=== PATIENT | male | born 1950 | race Caucasian/White ===

== ENCOUNTER 2016-10-07 08:52 | Emergency (ER) | payer MEDICARE, OTHER ==
[2016-10-07 09:39] VITALS: BP 132/58
[2016-10-07] MEDS ORDERED: Tetan/Diph/Pertus SYR(Tdap)* 0.5 ML SYR(BOOSTRIX) use SYR IM ONE (10:47)
[2016-10-07] MEDS ORDERED: cefTRIAXone VIAL(*) 250 MG VIAL IM ONE (10:47)
[2016-10-07] MEDS ORDERED: Lidocaine 1% MPF* 2 ML VIAL ONE (10:58)
[2016-10-07] MEDS ORDERED: Lidocaine 1% MPF* 2 ML VIAL INJ ONE (11:04)
--- NOTE | 2016-10-07 11:23 | UC ---
Bite Injury/Animal HPI - HPI Summary HPI Summary: 10/05/16 CAT BITE TO RIGHT SECOND FINGER WITH DRAINAGE REDNESS AND SWELLING DEVELPING TODAY. CAT IS IMMUNIZED. TETANUS STATUS UNKNOWN. - History of Current Complaint Chief Complaint: UCBiteInjury Stated Complaint: CAT BITE Time Seen by Provider: 10/07/16 10:32 Hx Obtained From: Patient Onset/Duration: Sudden Onset, Lasting Days, Still Present Type of Bite: Pet Has Animal Been Immunized?: Yes Character: Puncture Associated Signs And Symptoms: Positive: Fever, Erythema, Drainage, Swelling Animal Available for Observation: Yes Animal Control Notified: Yes - Risk Factors Infection/Sepsis Risk Factors: Delay in Initial Treatment - Allergies/Home Medications Allergies/Adverse Reactions: Allergies Allergy/AdvReac Type Severity Reaction Status Date / Time Fenofibrate [From Tricor] Allergy Muscle Ache Verified 10/07/16 09:32 Rosuvastatin [From Crestor] Allergy Muscle Ache Verified 10/07/16 10:19 Home Medications: Home Medications Acetaminophen TAB* [Tylenol TAB*] 2 tab PO 10/07/16 [History] Meloxicam [Vivlodex] 1 tab PO DAILY 10/07/16 [History Confirmed 10/07/16] PMH/Surg Hx/FS Hx/Imm Hx Previously Healthy: Yes - Surgical History Surgical History: None - Family History Known Family History: Negative: Blood Disorder - Social History Occupation: Retired Lives: With Family Alcohol Use: None Substance Use Type: None Smoking Status (MU): Former Smoker Review of Systems Constitutional: Fever Skin: Other - REDNESS SWELLING DRAINAGE RIGHT 2ND FINGER Eyes: Negative ENT: Negative Respiratory: Negative Cardiovascular: Negative Gastrointestinal: Negative Genitourinary: Negative Motor: Negative Neurovascular: Negative Musculoskeletal: Negative Neurological: Negative Psychological: Negative All Other Systems Reviewed And Are Negative: Yes Physical Exam Triage Information Reviewed: Yes Appearance: Well-Appearing, No Pain Distress, Well-Nourished Vital Signs: Initial Vital Signs Temp 99.0 F 10/07/16 09:35 Pulse 76 10/07/16 09:35 Resp 18 10/07/16 09:35 BP 132/58 10/07/16 09:35 Pulse Ox 95 10/07/16 09:35 Vital Signs Reviewed: Yes Eye Exam: Normal ENT Exam: Normal Dental Exam: Normal Neck exam: Normal Neck: Positive: Supple, Nontender Respiratory Exam: Normal Respiratory: Positive: Chest non-tender, Lungs clear, Normal breath sounds, No respiratory distress, No accessory muscle use Cardiovascular Exam: Normal Cardiovascular: Positive: RRR, No Murmur, Pulses Normal Abdominal Exam: Normal Neurological Exam: Normal Psychological Exam: Normal Skin: Positive: Other - ERYTHEMA EDEMA DRAINAGE RIGHT SECOND FINGER Bite Injury Course/Dx - Differential Dx/Diagnosis Provider Diagnoses: CELLILITIS, ABSCESS TO RIGHT SECOND FINGER Discharge - Discharge Plan Condition: Stable Disposition: HOME Prescriptions: Amoxicillin/Clavulanate TAB* [Augmentin TAB 875*] 875 mg PO BID #20 tab Patient Education Materials: Animal Bite (ED) Referrals: Falguni BISWAS,Sushil Sanderson [Primary Care Provider] -
== END 2016-10-07 11:38 | disposition home or self-care (01) ==
LOC: UCEAST 08:52
DX: L03.011 Cellulitis of right finger (principal); L02.511 Cutaneous abscess of right hand; W55.01XA Bitten by cat, initial encounter; Y92.9 Unspecified place or not applicable; Z87.891 Personal history of nicotine dependence; Z88.8 Allergy status to other drugs, medicaments and biological substances
CPT/HCPCS: 87070; 87205; 87640; 87641; 90471; 90715; 96372; 99212; G0463; J0696

== ENCOUNTER 2019-09-05 19:18 | Inpatient (IN) ==
[2019-09-05] MEDS ORDERED: NS 0.9% 1000 ml BAG 1,000 ML IV ONE ×2 (19:39→20:53)
[2019-09-05 20:14] LABS: ABS Basophils 0.1 10^3/ul (0-0.2); ABS Lymphocytes 1.1 10^3/ul (1.0-4.8); ABS Monocytes 0.7 10^3/ul (0-0.8); Eosinophil % 0.2 %; Hematocrit 44 % (42-52); Hemoglobin 15.2 g/dL (14.0-18.0); Mean Corpuscular HGB Conc 35 g/dL (31-36); Mean Corpuscular Hemoglobin 30 pg (27-31); Mean Corpuscular Volume 86 fL (80-94); Mean Platelet Volume 7.3 fL (7.4-10.4); Nucleated Red Blood Cells % 0.1; Platelet Count 236 10^3/uL (150-450); Red Blood Count 5.14 10^6 /uL (4.18-5.48); Red Cell Distribution Width 16 % (10-15); White Blood Count 15.4 10^3/uL (3.5-10.8)
[2019-09-05] MEDS ORDERED: Ondansetron 4 mg VIAL 2 MG/ML 2 ml VIAL IV ONE (20:22)
[2019-09-05] MEDS ORDERED: HYDROmorphone 1 MG/1 ML SYRINGE IV SLOW PU ONE (20:22)
[2019-09-05] MEDS ORDERED: Al Hydrox/Mg Hydrox/Simet LIQ 30 ML UDC PO ONE (20:24)
[2019-09-05 20:37] LABS: Albumin 4.2 g/dL (3.2-5.2); Albumin/Globulin Ratio 1.6 (1-3); BUN/Creatinine Ratio 24.7 (8-20); Calcium 9.3 mg/dL (8.6-10.3); EGFR African American 108.8 (>60); EGFR Non-African American 89.9 (>60); Globulin 2.7 g/dL (2-4); Potassium 4.7 mmol/L (3.5-5.0); Total Bilirubin 0.3 mg/dL (0.2-1.0); Total Protein 6.9 g/dL (6.4-8.9)
[2019-09-05] MEDS ORDERED: Piperacillin/Tazobac ADVAN(*) 3.375 GM in NS 0.9% 100 ml BAG 100 ML IVPB ONE (20:53)
[2019-09-05] MEDS ORDERED: Iodixanol (CONTRAST) 320 MG/ML 100 ML SDV IV ONE (21:45)
[2019-09-06] MEDS ORDERED: Ondansetron 4 mg VIAL 2 MG/ML 2 ml VIAL IV PRN (02:12)
[2019-09-06] MEDS ORDERED: NS 0.9% 1000 ml BAG 1,000 ML IV ONE ×2 (02:12→06:21)
[2019-09-06] MEDS: Pantoprazole VIAL 40 MG VIAL IV SCH (04:22)
[2019-09-06] MEDS: NS 0.9% 1000 ml BAG 1,000 ML IV SCH ×2 (04:23→15:23)
[2019-09-06 05:22] LABS: ABS Lymphocytes 0.4 10^3/ul (1.0-4.8); ABS Monocytes 0.9 10^3/ul (0-0.8); Hematocrit 41 % (42-52); Lymphocyte % 3.4 %; Mean Corpuscular HGB Conc 34 g/dL (31-36); Mean Corpuscular Hemoglobin 29 pg (27-31); Mean Corpuscular Volume 86 fL (80-94); Mean Platelet Volume 6.9 fL (7.4-10.4); Nucleated Red Blood Cells % 0.1; Platelet Count 178 10^3/uL (150-450); Red Blood Count 4.81 10^6 /uL (4.18-5.48); Red Cell Distribution Width 16 % (10-15); White Blood Count 12.8 10^3/uL (3.5-10.8)
[2019-09-06] MEDS: Heparin 5000 UNITS/ML 1 mL VIAL SUBCUT SCH ×3 (05:23→21:14)
[2019-09-06 05:35] LABS: INR 1.14 (0.82-1.09)
[2019-09-06 05:53] LABS: Calcium 8.1 mg/dL (8.6-10.3); Potassium 4.3 mmol/L (3.5-5.0)
[2019-09-06] MEDS ORDERED: Morphine 2 MG/ML SYRINGE IV PRN (05:56)
[2019-09-06 05:59] LABS: BUN/Creatinine Ratio 21.2 (8-20); EGFR African American 108.8 (>60); EGFR Non-African American 89.9 (>60); HDL Cholesterol 35.6 mg/dL
[2019-09-06 06:06] LABS: Urine Appearance Clear; Urine Bilirubin Negative (Negative); Urine Blood Negative (Negative); Urine Color Yellow; Urine Glucose Negative (Negative); Urine Ketones Negative (Negative); Urine Nitrite Negative (Negative); Urine Protein Negative (Negative); Urine Specific Gravity 1.055 (1.010-1.030); Urine Urobilinogen Negative (Negative)
[2019-09-06] MEDS ORDERED: Piperacillin/Tazobac ADVAN(*) 3.375 GM in NS 0.9% 100 ml BAG 100 ML IVPB ONE (07:08)
[2019-09-06 07:55] LABS: Albumin 3.7 g/dL (3.2-5.2); Albumin/Globulin Ratio 1.5 (1-3); Globulin 2.4 g/dL (2-4); Indirect Bilirubin 0.3 mg/dL (0.3-1.0); Total Bilirubin 0.4 mg/dL (0.2-1.0); Total Protein 6.1 g/dL (6.4-8.9)
[2019-09-06] MEDS ORDERED: Zosyn per Pharmacy NOTE FOLLOW UP SCH (08:00)
[2019-09-06] MEDS: ZOSYN 3.375 GM Q8H per EXTENDED INFUSION IV SCH ×2 (12:47→20:05)
[2019-09-06] MEDS ORDERED: Regadenoson 0.4 MG/5 ML SYRINGE ONE (13:05)
[2019-09-06 18:28] LABS: C Reactive Protein 16.22 mg/L (<8.01)
[2019-09-06 19:19] LABS: Erythrocyte Sed Rate 7 mm/Hr (0-19)
[2019-09-07] MEDS: ZOSYN 3.375 GM Q8H per EXTENDED INFUSION IV SCH ×3 (03:49→21:12)
[2019-09-07 07:11] LABS: ABS Lymphocytes 0.6 10^3/ul (1.0-4.8); ABS Monocytes 0.8 10^3/ul (0-0.8); Hematocrit 36 % (42-52); Hemoglobin 12.4 g/dL (14.0-18.0); Lymphocyte % 4.3 %; Mean Corpuscular HGB Conc 34 g/dL (31-36); Mean Corpuscular Hemoglobin 29 pg (27-31); Mean Corpuscular Volume 86 fL (80-94); Mean Platelet Volume 7.8 fL (7.4-10.4); Platelet Count 158 10^3/uL (150-450); Red Blood Count 4.23 10^6 /uL (4.18-5.48); Red Cell Distribution Width 16 % (10-15); White Blood Count 13.5 10^3/uL (3.5-10.8)
[2019-09-07] MEDS: Heparin 5000 UNITS/ML 1 mL VIAL SUBCUT SCH ×3 (07:25→21:12)
[2019-09-07 07:28] LABS: Albumin 3.4 g/dL (3.2-5.2); Albumin/Globulin Ratio 1.4 (1-3); BUN/Creatinine Ratio 15.3 (8-20); Calcium 7.9 mg/dL (8.6-10.3); EGFR African American 108.8 (>60); EGFR Non-African American 89.9 (>60); Globulin 2.4 g/dL (2-4); Indirect Bilirubin 0.5 mg/dL (0.3-1.0); Potassium 3.5 mmol/L (3.5-5.0); Total Bilirubin 0.7 mg/dL (0.2-1.0); Total Protein 5.8 g/dL (6.4-8.9)
[2019-09-07] MEDS: Pantoprazole VIAL 40 MG VIAL IV SCH (09:26)
[2019-09-08] MEDS: ZOSYN 3.375 GM Q8H per EXTENDED INFUSION IV SCH ×3 (05:05→20:58)
[2019-09-08] MEDS: Heparin 5000 UNITS/ML 1 mL VIAL SUBCUT SCH ×2 (05:06→13:38)
[2019-09-08 06:09] LABS: ABS Lymphocytes 0.6 10^3/ul (1.0-4.8); ABS Monocytes 0.9 10^3/ul (0-0.8); Eosinophil % 0.2 %; Hematocrit 37 % (42-52); Hemoglobin 12.6 g/dL (14.0-18.0); Lymphocyte % 4.5 %; Mean Corpuscular HGB Conc 34 g/dL (31-36); Mean Corpuscular Hemoglobin 29 pg (27-31); Mean Corpuscular Volume 85 fL (80-94); Mean Platelet Volume 7.3 fL (7.4-10.4); Nucleated Red Blood Cells % 0.1; Platelet Count 171 10^3/uL (150-450); Red Blood Count 4.33 10^6 /uL (4.18-5.48); Red Cell Distribution Width 16 % (10-15); White Blood Count 14.2 10^3/uL (3.5-10.8)
[2019-09-08 06:21] LABS: Albumin 3.4 g/dL (3.2-5.2); Albumin/Globulin Ratio 1.2 (1-3); BUN/Creatinine Ratio 14.3 (8-20); Calcium 8.1 mg/dL (8.6-10.3); EGFR African American 110.3 (>60); EGFR Non-African American 91.1 (>60); Globulin 2.8 g/dL (2-4); Indirect Bilirubin 0.6 mg/dL (0.3-1.0); Potassium 3.1 mmol/L (3.5-5.0); Total Bilirubin 0.7 mg/dL (0.2-1.0); Total Protein 6.2 g/dL (6.4-8.9)
[2019-09-08] MEDS ORDERED: Potassium Chlor 20 meq TAB.ER PO ONE (07:43)
[2019-09-08] MEDS: Pantoprazole VIAL 40 MG VIAL IV SCH (08:24)
[2019-09-08] MEDS ORDERED: Heparin 5000 UNITS/ML 1 mL VIAL SUBCUT ONE (21:00)
[2019-09-09] MEDS: ZOSYN 3.375 GM Q8H per EXTENDED INFUSION IV SCH ×3 (05:18→19:52)
[2019-09-09 05:40] LABS: BUN/Creatinine Ratio 16.5 (8-20); Calcium 8.1 mg/dL (8.6-10.3); EGFR African American 118.4 (>60); EGFR Non-African American 97.8 (>60); Potassium 3.3 mmol/L (3.5-5.0)
[2019-09-09] MEDS: KCL 10 MEQ/50 ML IVPREMIX 10 MEQ/50 ML BAG IV SCH ×3 (09:28→19:11)
[2019-09-09] MEDS: Pantoprazole VIAL 40 MG VIAL IV SCH (09:28)
[2019-09-09] MEDS ORDERED: Bupivacaine 0.25% EPI 200,000 30 ML SDV ONE (12:25)
[2019-09-09] MEDS ORDERED: Naloxone 0.4 mg VIAL 0.4 mg/ml 1 ml VIAL IV PRN (12:26)
[2019-09-09] MEDS ORDERED: HYDROmorphone 1 MG/1 ML SYRINGE IV PRN (12:26)
[2019-09-09] MEDS ORDERED: fentaNYL 100 mcg/2 ml 50 MCG/ML VIAL ONE (12:29)
[2019-09-09] MEDS ORDERED: Rocuronium 50 mg VIAL 10 mg/ml 5 ml VIAL (50 mg) ONE (13:25)
[2019-09-09] MEDS ORDERED: Succinylcholine 200 mg VIAL 20 mg/ml 10 ml VIAL (200 mg) ONE ×2 (13:25→13:29)
[2019-09-09] MEDS ORDERED: Etomidate 20 mg/10 ml 2 MG/ML 10 ml VIAL ONE (13:29)
[2019-09-09] MEDS ORDERED: Ondansetron 4 mg VIAL 2 MG/ML 2 ml VIAL ONE (13:29)
[2019-09-09] MEDS ORDERED: Dexamethasone IV 4 MG/ML VIAL 1 ml VIAL ONE (13:29)
[2019-09-09] MEDS ORDERED: Lidocaine 2% PF 5 ML VIAL ONE (13:29)
[2019-09-09] MEDS ORDERED: Propofol 10 MG/ML 20 ML BTL ONE (13:29)
[2019-09-09] MEDS ORDERED: Acetaminophen IV 1 GM/100ML 100 ML ONE (14:43)
[2019-09-09] MEDS ORDERED: Morphine 2 MG/ML SYRINGE IV PRN (15:20)
[2019-09-09] MEDS ORDERED: oxyCODONE/Acetamin 5/325 mg TAB PO PRN (15:20)
[2019-09-09] MEDS ORDERED: Potassium Chlor 20 meq TAB.ER PO ONE (18:22)
[2019-09-10] MEDS: ZOSYN 3.375 GM Q8H per EXTENDED INFUSION IV SCH ×3 (05:17→21:24)
[2019-09-10 06:31] LABS: Hematocrit 33 % (42-52); Hemoglobin 11.7 g/dL (14.0-18.0); Mean Corpuscular HGB Conc 35 g/dL (31-36); Mean Corpuscular Hemoglobin 30 pg (27-31); Mean Corpuscular Volume 86 fL (80-94); Mean Platelet Volume 7.2 fL (7.4-10.4); Platelet Count 208 10^3/uL (150-450); Red Blood Count 3.88 10^6 /uL (4.18-5.48); Red Cell Distribution Width 15 % (10-15); White Blood Count 10.8 10^3/uL (3.5-10.8)
[2019-09-10 06:52] LABS: BUN/Creatinine Ratio 20.9 (8-20); Calcium 7.7 mg/dL (8.6-10.3); EGFR African American 107.3 (>60); EGFR Non-African American 88.7 (>60); Magnesium 1.7 mg/dL (1.9-2.7); Potassium 4.2 mmol/L (3.5-5.0)
[2019-09-10] MEDS ORDERED: Magnesium Sulfate 2 gm BAG 2 GM/50 ML BAG IVPB ONE (12:19)
[2019-09-10] MEDS ORDERED: Magnesium Hydroxide LIQ 30 ML UDC PO PRN (17:07)
[2019-09-10] MEDS ORDERED: Senna TAB 8.6 mg TAB PO PRN (17:07)
[2019-09-11] MEDS: ZOSYN 3.375 GM Q8H per EXTENDED INFUSION IV SCH ×2 (05:28→13:38)
[2019-09-11 06:18] LABS: Hematocrit 35 % (42-52); Mean Corpuscular HGB Conc 35 g/dL (31-36); Mean Corpuscular Hemoglobin 30 pg (27-31); Mean Corpuscular Volume 86 fL (80-94); Platelet Count 231 10^3/uL (150-450); Red Blood Count 4.05 10^6 /uL (4.18-5.48); Red Cell Distribution Width 15 % (10-15)
[2019-09-11] MEDS ORDERED: Pneumococcal Vac 23-Polyvalent IM ONE (09:00)
[2019-09-11 11:43] VITALS: BP 154/62
== END 2019-09-11 14:00 | disposition home or self-care (01) | DRG 418 ==
LOC: ED 19:18 → MEDTELE 19:18 → OBSVTOIN 09-06 02:09 → MEDTELE 09-06 03:21 → MED 09-10 19:36
PROVIDERS: ADMIT Nurse Practitioner Family; ATTEND Internal Medicine